=== PATIENT | male | born 1955 | race Caucasian/White ===

== ENCOUNTER 2016-11-19 17:09 | Observation (INO) | payer OTHER ==
[~2016-11-19] VITALS: Ht 188 cm; Wt 111.4 kg
--- NOTE | ~2016-11-19 | ER ---
PATIENT'S NAME: [facility] AGE: 61 Y [address] ROOM: [place] [address] LOCATION: [facility] ADMIT DATE: 11/19/2016 ER/Outpatient Report DISCHARGE DATE: FAMILY PHYSICIAN: RASHAD MENDEZ MD ATTENDING PHYSICIAN: Kurt BENITEZ Time of Arrival: 1709 hours. Time of Evaluation: 1740 hours. CHIEF COMPLAINT: Blood clots. HISTORY OF PRESENT ILLNESS: The patient is a 61-year-old male who presents to the emergency department today with chief complaint of blood clots. The patient did undergo ultrasound of the left upper extremity. He was sent over after it was positive for blood clots. The patient did undergo a rotator cuff surgery by Dr. Feliz 2 months prior. He has noted increased swelling and pain. Denies any chest pain or shortness of breath. No fevers or chills. No nausea or vomiting. No diarrhea or constipation. The patient denies any history of blood clots. PAST MEDICAL HISTORY: Glaucoma. PAST SURGICAL HISTORY: Rotator cuff. SOCIAL HISTORY: The patient denies any tobacco use. He reports occasional alcohol use. He denies any illicit drug use. ALLERGIES: NO KNOWN DRUG ALLERGIES. MEDICATIONS: Three eye drops. PRIMARY CARE DOCTOR: Rashad Mendez MD. REVIEW OF SYSTEMS: All systems are reviewed by myself and negative with the exception of those discussed in the HPI and past medical history. PHYSICAL EXAMINATION: PATIENT'S NAME: [facility] AGE: 61 Y [address] ROOM: [place] [address] LOCATION: [facility] ADMIT DATE: 11/19/2016 ER/Outpatient Report DISCHARGE DATE: FAMILY PHYSICIAN: RASHAD MENDEZ MD ATTENDING PHYSICIAN: Kurt BENITEZ VITAL SIGNS: Weight 114.3 kg, blood pressure 163/107, pulse 101, respiratory rate 18, temperature 97.2, oxygen saturation 96% on room air. GENERAL: The patient is a 61-year-old male, who appears stated age, in no acute distress. HEENT: Normocephalic, atraumatic. Pupils are equal, round, and reactive to light. NECK: Supple. There is no nuchal rigidity. CARDIOVASCULAR: Tachycardic. No murmurs, rubs, or gallops. LUNGS: Clear to auscultation bilaterally. No wheezes, rales, or rhonchi. ABDOMEN: Soft, nontender, and nondistended. No rebound, rigidity, or guarding. MUSCULOSKELETAL: The patient has decreased range of motion. On left upper extremity at the shoulder, he does have some significant swelling noted distal to the shoulder, 2/4 pulses are noted. SKIN: Warm and dry. Surgical incisions are clean, dry, and intact. LABORATORY DATA AND X-RAYS: Labs and x-rays are obtained. CBC is unremarkable. Coags are unremarkable. CMP is unremarkable. LFTs are normal. A venous Doppler is discussed with the supply chain technician. I have discussed these results with him and it does show a deep vein thrombosis of the left upper extremity of the subclavian, axillary and brachiocephalic veins. The jugular is opened. IMPRESSION: 1. Acute left upper extremity deep vein thrombosis of the subclavian, axillary and brachiocephalic veins. 2. Initial visit. EMERGENCY DEPARTMENT COURSE: The patient was brought back to the examination room. Seen and evaluated by myself. IV was established. Laboratory analysis and imaging are obtained as described above. I did contact Dr. Dee with the patient's primary care who is secondary school special ed teacher and discussed the case. After discussion with the venous Doppler tech the clot burden, I did elect to initiate the patient on heparin. I have contacted the Hospitalist Service and discussed the case with Juan and he does agree to accept the patient for further evaluation, treatment, and management. DISPOSITION: The patient is admitted under the care of Hospitalist Service in stable condition. PATIENT'S NAME: JOSÉ SMITH [facility] AGE: 61 Y [address] ROOM: [address] [address] LOCATION: [facility] ADMIT DATE: 11/19/2016 ER/Outpatient Report DISCHARGE DATE: FAMILY PHYSICIAN: RASHAD MENDEZ MD ATTENDING PHYSICIAN: Kurt BENITEZ DO KJR/chacorta /[id number] d: 11/20/16 0650 t: 11/26/16 1905, OUTPATIENT REPORT
--- NOTE | ~2016-11-19 | ER ---
PATIENT'S NAME: JOSÉ SMITH [facility] AGE: 61 Y [address] ROOM: [address] [address] LOCATION: [facility] ADMIT DATE: 11/19/2016 ER/Outpatient Report DISCHARGE DATE: 11/21/2016 FAMILY PHYSICIAN: Oz Mendez MD ATTENDING PHYSICIAN: Juan Hicks This patient is a 61-year-old male, comes in with left upper extremity DVT. He was seen by Dr. Galindo. See Dr. Galindo's dictation in regard to the chief complaint, history of present illness, past medical history, physical exam, laboratory, x-ray, Doppler studies, final diagnoses, and treatment plan. I did not get involved with this patient's care because workup was completed. Hospitalist was called. The patient is admitted to the hospitalist service. MD REBEKAH BENNETT/modl /[id number] d: 11/27/16 0042 t: 11/27/16 1826, OUTPATIENT REPORT
--- NOTE | ~2016-11-19 | HP ---
PATIENT'S NAME: JOSÉ SMITH [facility] AGE: 61 Y [address] ROOM: [place] [address] LOCATION: [facility] ADMIT DATE: 11/19/2016 History & Physical DISCHARGE DATE: FAMILY PHYSICIAN: RASHAD SALDIVAR MD ATTENDING PHYSICIAN: Kurt BENITEZ DATE OF SERVICE: CHIEF COMPLAINT: Left upper extremity DVT. HISTORY OF PRESENT ILLNESS: The patient is a 61-year-old gentleman with no significant past medical history, who presents here with left upper extremity DVT. The patient had rotator cuff surgery on September [address] Feliz and has had left upper extremity swelling after the surgery. The patient reports that his symptoms did not improve and has increased in size. The patient was seen by Dr. Feliz in the office today and has had left upper extremity Doppler done today, which shows DVT in subclavian and brachial. The patient was sent to emergency department for further care. The patient was started on a heparin drip. The patient denies any chest pain, shortness of breath, dyspnea on exertion, nausea, vomiting, fever, chills, or productive cough. PAST MEDICAL HISTORY: Glaucoma. PAST SURGICAL HISTORY: Rotator cuff surgery. FAMILY HISTORY: Mother of breast cancer. Father has cirrhosis. 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 Social drinker and denies of smoking. ALLERGY: No known drug allergies. MEDICATIONS: See MAR. REVIEW OF SYSTEMS: All systems have been reviewed and are negative except for what mentioned in PATIENT'S NAME: JOSÉ SMITH [facility] AGE: 61 Y [address] ROOM: [place] [address] LOCATION: [facility] ADMIT DATE: 11/19/2016 History & Physical DISCHARGE DATE: FAMILY PHYSICIAN: RASHAD SALDIVAR MD ATTENDING PHYSICIAN: Kurt BENITEZ the HPI. PHYSICAL EXAMINATION: VITAL SIGNS: Temperature 97.6, blood pressure 166/110, heart rate 88, and respiratory rate of 14. The patient is saturating 94% on room air. GENERAL APPEARANCE: The patient is alert and awake, in no acute distress. HEAD: Normocephalic, atraumatic. EYES: Extraocular muscle intact. NOSE: No nasal discharge. EARS: No ear discharge. CHEST: Clear to auscultation bilaterally. HEART: Regular rate and rhythm. No murmurs, rubs, or gallops. ABDOMEN: Soft, nontender, and nondistended. Bowel sounds present. EXTREMITIES: Left upper extremity, moderate swelling. Distal pulses in the left extremity present. Capillary refill present. SKIN: Warm to touch. MUSCULOSKELETAL: Range of motion intact. LEAN MANUFACTURING SPECIALIST: Alert and oriented x3. Motor and sensory grossly intact. LABORATORY DATA: White blood cell count 5.5, hemoglobin of 15.7, and platelet 165. Sodium 141, potassium 3.8, creatinine 0.6, and BUN of 9. ASSESSMENT AND PLAN: 1. Left upper extremity. The patient is a 61-year-old gentleman with no significant medical history, who presents with left upper extremity DVT secondary to surgery. Preliminary report of venous Doppler per emergency department physician shows DVT of left upper extremity including subclavian and brachial with high burden of DVT. The patient has moderate swelling. Distal pulses and capillary refill intact. There are no signs of cerulea dolens. The patient is already on heparin drip. We will continue heparin drip. We will place smitha wrap around his left upper extremity to elevate his upper extremity. We will admit the patient as observation and to discharge the patient on p.o. anticoagulation on discharge. 2. Glaucoma. Continue medication. Greater than 30 minutes was spent on patient care, 50% of the time was spent on direct patient care. Assessment and plan was discussed with the patient. Discussed with the patient about anticoagulation and risk and benefit. The patient understands the risk and benefit of anticoagulation. We will admit the patient as observation. PATIENT'S NAME: JOSÉ SMITH [facility] AGE: 61 Y [address] ROOM: [address] [address] LOCATION: [facility] ADMIT DATE: 11/19/2016 History & Physical DISCHARGE DATE: FAMILY PHYSICIAN: RASHAD SALDIVAR MD ATTENDING PHYSICIAN: Kurt BENITEZ MD AD/modl /[id number] HISTORY & PHYSICAL
[2016-11-19 18:20] LABS: BASOPHIL # 0.1 K/uL (0.0-0.2); BASOPHIL % 0.9 %; EOSINOPHIL # 0.2 K/uL (0.0-0.5); EOSINOPHIL % 3.1 %; HEMATOCRIT 44.6 % (37.0-53.0); HEMOGLOBIN 15.7 g/dL (11.0-16.0); IMMATURE GRANULOCYTE % 0.4 %; LYMPHOCYTE # 1.8 K/uL (0.8-4.0); LYMPHOCYTE % 32.7 %; MCH 32.6 pg (27.0-34.0); MCHC 35.2 gm/dL (32.0-36.5); MCV 92.5 fl (83.0-98.0); MONOCYTE # 0.5 K/uL (0.0-1.0); MPV 10.1 fl (9.4-12.4); NEUTROPHIL % 53.9 %; NRBC % 0 /100WBC (0-0.00); PLATELET COUNT 165 K/uL (150-450); RBC 4.82 M/uL (3.50-5.50); RDW-CV 11.9 % (11.9-14.6); WBC 5.5 K/uL (4.0-11.0)
[2016-11-19 18:28] LABS: INR - (THERAPEUTIC) 0.97 (0.92-1.07); PROTIME 10.2 SECONDS (9.8-11.4); PTT 25 SECONDS (25-32)
[2016-11-19 18:39] LABS: ALBUMIN 3.6 gm/dL (3.5-5.0); ALK PHOS 93 IU/L (33-138); ALT 34 IU/L (12-78); ANION GAP 14.8 (10.0-19.0); AST 15 IU/L (10-40); BLOOD UREA NITROGEN 9 mg/dL (6-24); CALCIUM 8.2 mg/dL (8.5-10.5); CHLORIDE 105 mMol/L (96-110); CO2 25 mMol/L (22-32); CREATININE 0.6 mg/dL (0.6-1.3); ESTIMATED GFR (MDRD EQUATION) > 60; POTASSIUM 3.8 mMol/L (3.7-5.1); SODIUM 141 mMol/L (135-145); TOTAL BILIRUBIN 1.1 mg/dL (0.0-1.5); TOTAL PROTEIN 6.5 g/dL (6.0-8.4)
[2016-11-19] MEDS ORDERED: XALATAN2.5 ML OPHTH (19:22)
[2016-11-19] MEDS ORDERED: ALPHAGAN P5 ML OPHTH (19:26)
[2016-11-19] MEDS ORDERED: TYLENOL EXTRA500 MG PO (19:27)
[2016-11-19] MEDS ORDERED: TIMOPTIC5 ML OPHTH (19:27)
[2016-11-19] MEDS ORDERED: ADVIL200 MG PO (19:27)
--- NOTE | 2016-11-19 20:44 | NUR ---
Patient is 61 yo male admitted this evening for DVT in his left upper arm. he was seen earlier today by Dr. Feliz for follow up from left shoulder rotator cuff repair w/bicep reattachment in August of 2016. he was sent to the ER after seen in the clinic and is admitted from the ER. Patient works at [employer] in [place]. He lives in [place] by himself, he is . Has worked at [employer] for years on the 3rd shift. patient has IV in right hand with heparin infusing. no erythema or edema is noted at site. patient states he does have pain in his left chest at times, but thinks it is from the edema he has had since his surgery in August. He has also had ringing in his ears since his surgery as well. Education is given as documented. patient denies questions. pneumatics are held at this time due to blood clot and patient is on heparin drip. Advanced directive booklet was given per patient request with instructions for use. denies questions. patient refused pneumonia shot. refusal is signed and placed in chart. call light is within reach. patient denies needs at this time. Report is given to RONALDO Vance.
--- NOTE | 2016-11-20 05:10 | NUR ---
Significant Event: ADMITTED AT 1999. STANDBY ASSIST WITH TRANSFERS. VOIDS WITHOUT DIFFICULTY. ON ROOM AIR. EDEMA TO L) HAND AND L) ARM. CSM WNL. ON A HEPARIN DRIP. NEXT PTTHP AT 0700. PATIENT STATED FAMILY WILL BRING HIS EYE DROPS IN. MORPHINE X1 AT 2153. HAS REFUSED PAIN MEDICATION SINCE. Follow up:
--- NOTE | 2016-11-20 09:10 | NUR ---
Introduced self/role to patient, lives in [place] alone but has children and grandchildren close. Denied any need for DME. Has a cane already. Added my name to his marker board, will continue to follow.
--- NOTE | 2016-11-20 14:22 | NUR ---
Significant Event: AOx3. CSM WNL. Heparin drip stopped at 1400. Started on Xerelto BID. Up with SBA. Percocet given for L) shoulder pain. Follow up:
--- NOTE | 2016-11-21 04:55 | NUR ---
Significant Event: A/O X 3. CSM WNL, NO NUMB-TINGLING TO LEFT [id number]. DENIES SOB. ON XARELTO 15MG PO BID. PERCOCET TAB ONE GIVEN FOR LT SHOULDER PAIN. HAS WEAKNESS GRASPS LT HAND. STRONGER ON RT. IV SALINE LOCK INTACT. ICE BAG TO LT SHOULDER. EDEMA TO LT ARM, STIFFNESS FINGERS. MOVES FINGERS. PERCOCET TAB ONE GIVEN X 2, LAST AT 0252. PATIENT SAT UP IN CHAIR, AND RESTS IN BED. INDEPENEDENT TO BR X 3 VOIDS. Follow up:
[2016-11-21 05:31] LABS: HEMOGLOBIN 15.4 g/dL (11.0-16.0)
[2016-11-21] MEDS ORDERED: XARELTO15 MG PO (13:46)
[2016-11-21] MEDS ORDERED: PERCOCET 5-3251 EACH PO (13:49)
[2016-11-21] MEDS ORDERED: XARELTO20 MG PO (13:50)
--- NOTE | 2016-11-21 16:33 | NUR ---
Pt verbalizes he is comfortable and ready to be dismissed. Pt's left upper extremity pulse strong. Hand/fingers warm to touch. Pt denies numbness or tingling. Cap refill under 3 secs. Pt given prescriptions, appointment card, educational handouts. IV dc'd. Tele called and notified of anticipated discharge, final tele strip printed. Tele removed from patient. Pt output Quantity sufficient. VSS. Pain is tolerable at a 2/10. Pt verbalizes understanding of pain control and dvt's. Pt wheeled to vehicle and gets into vehicle w/o difficulty.
== END 2016-11-21 14:37 | disposition disaster alternative care site (69) ==
LOC: GMED 17:09 → G3N 19:01
PROVIDERS: Emergency Medicine; Internal Medicine; ADMIT Internal Medicine
DX: I82.622 Acute embolism and thrombosis of deep veins of left upper extremity (principal); H40.9 Unspecified glaucoma; Z98.890 Other specified postprocedural states; Z79.899 Other long term (current) drug therapy
CPT/HCPCS: G0378; J1644; J2270

== ENCOUNTER → 2016-11-19 | Outpatient (CLI) | payer OTHER ==
[~2016-11-19] MED LIST: ADVIL200 MG PO; ALPHAGAN P5 ML OPHTH; PERCOCET 5-3251 EACH PO; TIMOPTIC5 ML OPHTH; TYLENOL EXTRA500 MG PO; XALATAN2.5 ML OPHTH; XARELTO15 MG PO; XARELTO20 MG PO
--- NOTE | ~2016-11-19 | ENPV ---
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 Cephalic vein and basilic veins have acute thrombus seen in the upper arm. Procedure Type of Study: Veins:Upper Extremities Veins, Upper Extremity Left. Indications for Study:Pain in Limb and Swelling of Limb. Appropriate Use Criteria:9 Patient Status:Routine. Study Location:Vascular Lab. Technical Quality:Adequate visualization. - Preliminary reported to:[facility]. Velocities are measured in cm/s ; Diameters are measured in cm Right UE Vein Measurements 2D and Doppler Measurements + + + + +--------+ + !Location !Visualized !Compressibility !Thrombosis !Signal !Reflux ! + + + + +--------+ + !SCV !Yes !Yes !None !Phasic ! ! + + + + +--------+ + Left UE Vein Measurements 2D and Doppler Measurements + + + + + +---------+ !Location !Visualized !Compressibility !Thrombosis !Signal !Reflux ! + + + + + +---------+ !IJV !Yes !Yes !None !Phasic ! ! + + + + + +---------+ !SCV !Yes !Partial !Acute !Diminished ! ! + + + + + +---------+ !Innominate !Yes !Yes !None !Phasic ! ! + + + + + +---------+ !Axillary !Yes !No !Acute !Absent ! ! + + + + + +---------+ !Brachial !Yes !No !Acute !Absent ! ! + + + + + +---------+ !Radial !Yes !Yes !None !Phasic ! ! + + + + + +---------+ !Ulnar !Yes !Yes !None !Phasic ! ! + + + + + +---------+ !Basilic !Yes !No !Acute !Absent ! ! + + + + + +---------+ !Cephalic !Yes !No !Acute !Absent ! ! + + + + + +---------+ Signature dtt: ESME DOWNS dtd: 11/19/16 1606 Physician Self Edit
== END | disposition disaster alternative care site (69) ==
LOC: GCAR 15:34
DX: M25.512 Pain in left shoulder (principal); I82.622 Acute embolism and thrombosis of deep veins of left upper extremity